=== PATIENT | female | born 1995 | race African-American/Black ===

== ENCOUNTER 2021-06-25 14:20 | Inpatient (IN) | payer OTHER ==
[2021-06-25] MEDS ORDERED: BUTORPHANOL TARTRATE 2 MG/ML VIAL IVPUSH ONE (15:14)
[2021-06-25] MEDS ORDERED: PROMETHAZINE HCL 25 MG/1 ML VIAL IVPUSH ONE (15:14)
[2021-06-25] MEDS ORDERED: DEXTROSE 5%-LACTATED RINGERS 1,000 ML IV SCH (15:15)
[2021-06-25] MEDS ORDERED: BUTORPHANOL TARTRATE 2 MG/ML VIAL ONE (15:56)
[2021-06-25] MEDS ORDERED: PROMETHAZINE HCL 25 MG/1 ML VIAL ONE (15:56)
[2021-06-25 16:17] LABS: BASO % 0.2 % (0-2.0); EOS % 0.2 % (0-4.5); HEMATOCRIT 34.4 % (32.4-45.2); HEMOGLOBIN 11.1 GM/dL (10.7-15.3); LYMPH % 14.4 % (8-40); MCH 26.2 pg (25.7-33.7); MCHC 32.3 g/dl (32.0-36.0); MEAN CELL VOLUME 81.1 fl (80-96); MEAN PLT VOLUME 8.6 fl (7.5-11.1); MONO % 6.7 % (3.8-10.2); NEUT % 78.5 % (42.8-82.8); PLATELET COUNT 277 10^3/uL (134-434); RBC 4.25 M/mm3 (3.60-5.2); RDW 14.3 % (11.6-15.6); WHITE BLOOD COUNT 14.7 K/mm3 (4.0-10.0)
[2021-06-25 16:35] LABS: INR 1.01 (0.83-1.09); PROTHROMBIN TIME (PATIENT) 11.3 SEC (9.7-13.0)
[2021-06-25 16:38] LABS: ACTIVATED PTT 26.7 SECONDS (25.2-36.5); CALCIUM 9.4 mg/dL (8.5-10.1)
[2021-06-25 16:39] LABS: BLOOD UREA NITROGEN 4.8 mg/dL (7-18)
[2021-06-25 16:42] LABS: CREATININE 0.5 mg/dL (0.55-1.3)
[2021-06-25 16:44] VITALS: BMI 32.8
[2021-06-25] MEDS ORDERED: NALOXONE HCL 0.4 MG/ML VIAL IVPUSH PRN (17:57)
[2021-06-25] MEDS ORDERED: BUPIVACAINE HCL/PF 0.25% (2.5MG/ML) 10 ML VIAL ONE (17:59)
[2021-06-25] MEDS ORDERED: FENTANYL/BUPIVACAINE/NS/PF - PCEA - 50 ML DISP.SYRIN EP SCH (18:00)
[2021-06-25] MEDS ORDERED: FENTANYL/BUPIVACAINE/NS/PF - PCEA - 50 ML DISP.SYRIN EP ONE ×2 (18:00→22:31)
[2021-06-25] MEDS ORDERED: PCA PUMP NR ONE ×2 (18:00→22:31)
[2021-06-25] MEDS ORDERED: ELECTROLYTE-148 SOLN 500 ML IV ONE (19:30)
[2021-06-25 20:46] LABS: EPI CELLS 4 /uL (0-25.1); HYALINE CASTS 1 /uL (0-3.1); PH,URINE 5.5 (5.0-8.0); URINE APPEARANCE CLEAR; URINE BACTERIA 13 /uL (0-1359); URINE BILIRUBIN NEGATIVE (NEGATIVE); URINE COLOR YELLOW; URINE GLUCOSE (UA) NEGATIVE (NEGATIVE); URINE KETONE 4+ (NEGATIVE); URINE LEUK ESTERASE NEGATIVE (NEGATIVE); URINE NITRITE NEGATIVE (NEGATIVE); URINE PROTEIN NEGATIVE (NEGATIVE); URINE RBC 29 /uL (0-23.9); URINE UROBILINOGEN 0.2 mg/dL (0.2-1.0); URINE WBC 4 /uL (0-25.8)
[2021-06-26] MEDS ORDERED: ELECTROLYTE-148 SOLN 1,000 ML IV ONE (01:00)
[2021-06-26] MEDS ORDERED: FENTANYL/BUPIVACAINE/NS/PF - PCEA - 50 ML DISP.SYRIN EP ONE (02:13)
[2021-06-26] MEDS ORDERED: OXYTOCIN 20 UNITS in 0.9% NS 20 UNIT/1,000 ML INFUS.BAG IV ONE (06:32)
[2021-06-26] MEDS ORDERED: OXYTOCIN 30 UNITS in 0.9% NS 30 UNIT/500 ML INFUS.BAG IVPB ONE (08:12)
[2021-06-26] MEDS ORDERED: BUPIVACAINE HCL/PF 0.25% (2.5MG/ML) 10 ML VIAL ONE (08:23)
[2021-06-26] MEDS ORDERED: IBUPROFEN 600 MG TABLET (FP) PO PRN (08:39)
[2021-06-26] MEDS ORDERED: WITCH HAZEL 50% (TUCKS) 40 PAD/JAR PAD TP PRN (08:39)
[2021-06-26] MEDS ORDERED: BENZOCAINE 28 GM HEMORRHOIDAL OINTMENT TP PRN (08:39)
[2021-06-26] MEDS ORDERED: BENZOCAINE 20% 57 GM BOTTLE TP PRN (08:39)
[2021-06-26] MEDS ORDERED: METHYLERGONOVINE MALEATE 0.2 MG/1 ML AMP IM PRN (08:39)
[2021-06-26] MEDS ORDERED: ACETAMINOPHEN 325 MG TABLET (FP) PO PRN (08:39)
[2021-06-26] MEDS ORDERED: BISACODYL 10 MG SUPP.RECT RC PRN (08:39)
[2021-06-26] MEDS ORDERED: OXYTOCIN 20 UNITS in 0.9% NS 20 UNIT/1,000 ML INFUS.BAG IV SCH (08:45)
[2021-06-26] MEDS ORDERED: FERROUS SO4 325 MG TABLET (FP) PO SCH (10:00)
[2021-06-26] MEDS ORDERED: PRENATAL VITAMINS W/ FOLIC ACID TABLET (FP) PO SCH (10:00)
[2021-06-26] MEDS ORDERED: PCA PUMP NR ONE (11:20)
[2021-06-26 19:10] VITALS: BP 110/65; PULSE 94; TEMP 98.6
[2021-06-27] MEDS ORDERED: SENNOSIDES/DOCUSATE COMBO (SENNA PLUS) TABLET (UD) PO PRN (22:00)
== END 2021-06-26 20:10 | disposition home or self-care (01) | DRG 805 ==
LOC: JDEL 14:20 → JLDR 14:50 → J3W 06-26 11:00
PROVIDERS: ADMIT Obstetrics & Gynecology; ATTEND Obstetrics & Gynecology
PROC: 10E0XZZ Delivery of Products of Conception, External Approach (ICD-10-PCS; principal; 2021-06-26)
DX: O60.12X0 Preterm labor second trimester with preterm delivery second trimester, not applicable or unspecified (principal); O45.8X2 Other premature separation of placenta, second trimester; Z37.1 Single stillbirth; Z3A.21 21 weeks gestation of pregnancy; O32.1XX0 Maternal care for breech presentation, not applicable or unspecified
CPT/HCPCS: 36415; 59409; 80048; 81003; 85025; 85610; 85730; 86780; 86850; 86900; 86901; 87086; 88307-TC; C9803; U0003; U0005